=== PATIENT | female | born 1945 | race Caucasian/White ===

== ENCOUNTER 2021-08-08 13:30 | Inpatient (IN) ==
--- NOTE | 2021-08-08 13:44 | Emergency Department Note ---
HPI General Chief complaint: Extremity Injury, Lower Stated complaint: hip pain Time Seen by Provider: 08/08/21 13:38 Source: patient and EMS Mode of arrival: EMS Limitations: no limitations History of Present Illness HPI Narrative: 75-year-old female with past medical history of ankylosing spondylitis, anemia, and aortic valve stenosis presenting with right hip pain after a fall. Patient was getting out of the shower and tried to step over the tub when she tripped and fell onto her right side. Did not hit her head or lose consciousness. She was not able to get up on her own and EMS was called. She has pain in her anterior right hip area. Denies numbness or paresthesias. Denies any headache, back pain, or other extremity pain. Not on anticoagulation. She was given 100 mcg of fentanyl by EMS. Denies recent cough, fever, chest pain, or dysuria. Related Data Home Medications Medication Instructions Recorded Confirmed ascorbic acid (vitamin C) 500 mg 500 mg PO QDAY 08/30/17 08/08/21 capsule cholecalciferol (vitamin D3) 50 4,000 unit PO QDAY 12/11/17 08/08/21 mcg (2,000 unit) capsule vitamin B complex 1 cap PO QDAY 12/11/17 08/08/21 [id number]-minerals 18 1 tab PO QDAY tab 08/20/18 08/08/21 mg-0.4 mg tablet (Maximum Daily Multivitamin) ferrous sulfate 325 mg (65 mg 325 mg PO QAM tab 07/27/20 08/08/21 iron) tablet ibuprofen 200 mg tablet 200 mg PO PRN tab 07/27/20 08/08/21 Previous Rx's Medication Instructions Recorded albuterol sulfate 90 mcg/actuation 2 puff INHALATION QID PRN #8.5 g 08/06/20 aerosol inhaler Allergies Allergy/AdvReac Type Severity Reaction Status Date / Time Sulfa (Sulfonamide Allergy Mild Hives Verified 08/08/21 13:42 Antibiotics) Tetracyclines Allergy Mild Hives Verified 08/08/21 13:42 codeine Allergy Unknown Nausea, Verified 08/08/21 13:42 dizziness Amoxicillin [From Augmentin] AdvReac Intermediate Vomiting Verified 08/08/21 13:42 clavulanic acid AdvReac Intermediate Vomiting Verified 08/08/21 13:42 [From Augmentin] Review of Systems ROS ROS Narrative: Narrative: Constitutional: Denies fever or chills ENT ED: Denies throat pain Cardiovascular: Denies chest pain Respiratory: Denies shortness of breath or cough Gastrointestinal: Reports nausea; Denies abdominal pain, vomiting or diarrhea Genitourinary: Denies dysuria or hematuria Musculoskeletal: Reports as per HPI; Denies back pain Integumentary: Denies rash Neurological: Denies headache or dizziness Psychiatric: Denies anxiety Endocrine: Denies fatigue Hematological/Lymphatic: Denies easy bleeding PFSH Narrative Patient History Narrative: Narrative: Medical/Surgical/Family History All Active Problems (Updated 08/08/21 @ 14:46 by Fransico Fuentes MD) Closed intertrochanteric fracture of right hip (Acute) COVID-19 (Chronic) Fever (Acute) Cough (Acute) Polyclonal gammopathy (Acute) Watermelon stomach (Acute) Anemia (Chronic) Heartburn (Acute) Dyspnea (Acute) Pneumonia (Acute) SOB (shortness of breath) (Acute) URI (upper respiratory infection) (Chronic) Medication side effects (Acute) Maxillary sinusitis (Acute) Abdominal pain (Acute) Change in bowel habits (Acute) 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) Sinusitis, acute (Acute) Nausea & vomiting (Acute) Diarrhea due to drug (Acute) Side effect of medication (Acute) Subdural hemorrhage (Acute) Dizziness (Acute) Frontal headache (Acute) Nausea alone (Acute) Shortness of breath (Acute) Pleural effusion (Chronic) Chest pain (Chronic) Chronic cough (Chronic) Vitamin D deficiency (Chronic) Obesity (Chronic) Mitral valve stenosis (Chronic) Aortic valve stenosis (Chronic) Backache with radiation (Chronic) 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) Palpitations (Chronic) Dyspnea on exertion (Chronic) Urinary incontinence (Chronic) History of esophagogastroduodenoscopy (EGD) (Chronic 07/21/17) Iron deficiency anemia (Chronic) Candidiasis of vagina (Chronic) Community acquired pneumonia (Chronic) Elevated total protein (Acute) Acute dyspnea (Acute) Asthma exacerbation (Acute) Fever (Chronic) Atelectasis of left lung (Chronic) Ankylosing spondylitis (Chronic) JERAD positive (Chronic) Abnormal immunological finding in serum (Acute) Medical History Abnormal immunological finding in serum JERAD positive Anemia Ankylosing spondylitis Aortic valve stenosis Atelectasis of left lung Backache with radiation Candidiasis of vagina Chest pain Chronic cough Community acquired pneumonia 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 Cough Dyspnea on exertion Fever Iron deficiency anemia Mitral valve stenosis Obesity Palpitations Pleural effusion Pneumonia Polyclonal gammopathy Shortness of breath SOB (shortness of breath) URI (upper respiratory infection) Urinary incontinence Vitamin D deficiency Watermelon stomach Surgical History History of colonoscopy (06/25/15) History of esophagogastroduodenoscopy (EGD) (07/21/17) Family History Mother Heart disease, Onset Age: 80 Malignant tumor of colon Father , age 82 Carcinoma of prostate Heart disease Social History Smoking Status: Never smoker Alcohol Intake Frequency: does not drink Substance Use: does not use Exam Narrative Narrative: Narrative: General Limitations: no limitations General appearance: Present alert and in no apparent distress Head Head: Present atraumatic and normocephalic Eye Eye: Present normal appearance, PERRL and EOMI; Absent scleral icterus or conjunctival injection ENT ENT: Present mucous membranes moist Neck Neck: Present normal inspection, full ROM and trachea midline; Absent tenderness Chest Chest: Present symmetric chest wall rise Respiratory Respiratory: Present normal lung sounds bilaterally; Absent respiratory distress, wheezes, stridor, accessory muscle use or prolonged expiratory phase Cardiovascular Cardiovascular: Present regular rate, normal rhythm and systolic murmur; Absent diastolic murmur Adbominal Abdominal: Present soft; Absent distention, tenderness, guarding, rebound, rigidity or organomegaly Extremities Extremities: Present other (No upper extremity bony tenderness or left leg bony tenderness to palpation) Expanded Lower Extremity Hip/Pelvis: Present tenderness, deformity, external rotation and shortening Upper leg: Present normal inspection; Absent deformity Knee: Present normal inspection and full ROM; Absent tenderness Ankle: Present normal inspection and full ROM; Absent tenderness Neurovascular/Tendon: Present normal capillary refill; Absent pulse deficit or sensory deficit Back Back: Present normal inspection; Absent spinous process tenderness Neurological Neurological: Present alert, oriented X3 and CN II-XII intact; Absent motor sensory deficit Psychiatric Psychiatric: Present normal affect and normal mood Skin Skin: Present warm (WNL) and dry Course Consultations Consultation #1: Dr. Salvador, orthopedics Time: 13:45 Vital Signs Vital signs: Vital Signs Temperature 97.9 F 08/08/21 13:37 Pulse Rate 88 08/08/21 13:37 Respiratory Rate 16 08/08/21 13:37 Blood Pressure 176/69 08/08/21 13:37 Pulse Oximetry (%) 90 08/08/21 13:37 Temperature 97.9 F 08/08/21 13:37 Pulse Rate 86 08/08/21 14:46 Respiratory Rate 16 08/08/21 13:37 Blood Pressure 134/47 08/08/21 14:46 Pulse Oximetry (%) 100 08/08/21 14:46 MDM MDM Narrative Medical decision making narrative: 75-year-old female presenting with right hip pain after a fall. Her right leg is shortened and externally rotated. Neurovascularly intact. No other injuries. Likely right hip fracture, will obtain labs and x-rays. EKG shows no ischemic changes. She was given IV fentanyl by EMS and is now nauseous, will give IV Zofran. 1350: X-ray of the right hip shows an intertrochanteric fracture with moderate deformity. Chest x-ray shows stable fibrosis in both lungs. I spoke with Dr. Salvador of orthopedics who will admit the patient for likely surgical repair tomorrow. Patient was ordered 2mg of IV morphine in the ED. Admission orders placed. Patient and family updated with findings and plan. Lab Data Lab results reviewed: Yes I reviewed the patient's lab results. Result diagrams: 08/08/21 13:56 08/08/21 13:56 Labs: Lab Results 08/08/21 Range/Units 13:56 WBC 5.5 (4.5-11.0) K/mcL RBC 4.01 (3.59-5.38) M/mcL Hgb 9.1 L (11.2-15.7) g/dL Hct 30.6 L (34.1-44.9) % MCV 76.3 L (80.0-100.0) fL MCH 22.7 L (26.0-34.0) pg MCHC 29.7 L (31.0-36.0) g/dL RDW 19.9 H (11.5-14.5) % Plt Count 216 (140-440) K/mcL MPV 10.3 (7.4-10.4) fL Neut % (Auto) 80.1 H (38.0-78.0) % Lymph % (Auto) 8.9 L (15.5-49.0) % [place] % (Auto) 9.4 (1.0-12.0) % Eos % (Auto) 1.1 (0.0-7.0) % Baso % (Auto) 0.5 (0.0-2.0) % Lymph # (Auto) 0.49 L (1.50-4.80) K/mcL [place] # (Auto) 0.52 (0.10-0.90) K/mcL Eos # (Auto) 0.06 (0.00-0.70) K/mcL Baso # (Auto) 0.03 (0.00-0.30) K/mcL Absolute Neutrophils 4.43 (1.80-8.00) K/mcL Radiology Data Radiology results reviewed: Yes I reviewed the patient's radiology results. Radiology results narrative: Ordering Physician:Fransico Fuentes M.D. Date of Service:08/08/21 Procedure(s):XR hip RT comp 2VW HISTORY: Fell with right hip pain FINDINGS: There is an acute comminuted intertrochanteric fracture of the right hip. Lesser trochanter is displaced medially. There is impaction and angulation at the fracture site resulting in varus angulation. The femoral head remains normally centered within the acetabulum. There is a ring of spurs along the margin of the femoral head. The left hip is normal. There is moderate disc space narrowing at L4-5. The bones are osteoporotic. IMPRESSION: Intertrochanteric fracture of the right hip with moderate deformity Interpreted and Authenticated by: Hector Mckeon 08/08/21 Ordering Physician:Fransico Fuentes M.D. Date of Service:08/08/21 Procedure(s):XR chest 1V HISTORY: Fractured hip, preop FINDINGS: There is parenchymal scarring in both lung bases and in the left mid thorax. This is a chronic finding, unchanged from 07/15/21. There is no acute infiltrate. No mass or congestive heart failure are present. The heart size is normal. There is scarring in both costophrenic sulci. IMPRESSION: Stable fibrosis in both lungs and no acute abnormality Interpreted and Authenticated by: Hector Mckeon 08/08/21 EKG Data EKG #1: EKG attestation: Yes I reviewed and interpreted this EKG. and Yes There are no EKG findings of acute coronary syndrome EKG results narrative: Normal sinus rhythm at [address] elevation or depression. Interpretation: no acute changes Discharge Plan Patient/Caregiver Discharge Instructions Pt seen by DATA SCIENCE AND IOT MANAGER/PA only: No Clinical Impression: Closed intertrochanteric fracture of right hip Patient Disposition: Xfer As Inpt ([facility]) Follow up with: No,PCP [Primary Care Provider] - Prescriptions: No Action ibuprofen 200 mg tablet 200 mg PO PRN 0RF ferrous sulfate 325 mg (65 mg iron) tablet 325 mg PO QAM 0RF ascorbic acid (vitamin C) 500 mg capsule 500 mg PO QDAY 0RF vitamin B complex capsule 1 cap PO QDAY 0RF cholecalciferol (vitamin D3) 2,000 unit capsule 4,000 unit PO QDAY 0RF Maximum Daily Multivitamin 18-0.4 mg tablet 1 tab PO QDAY 0RF albuterol sulfate 90 mcg/actuation HFA aerosol inhaler 2 puff inhalation QID PRN (Reason: shortness of breath or wheezing) Qty: 8.5 0RF
[2021-08-08] MEDS ORDERED: ONDANSETRON 4 MG/2 ML VIAL IV ONE (13:52)
--- NOTE | 2021-08-08 14:28 | XRay Report ---
HISTORY: Fell with right hip pain FINDINGS: There is an acute comminuted intertrochanteric fracture of the right hip. Lesser trochanter is displaced medially. There is impaction and angulation at the fracture site resulting in varus angulation. The femoral head remains normally centered within the acetabulum. There is a ring of spurs along the margin of the femoral head. The left hip is normal. There is moderate disc space narrowing at L4-5. The bones are osteoporotic. IMPRESSION: Intertrochanteric fracture of the right hip with moderate deformity Interpreted and Authenticated by: Hector Mckeon 08/08/21
--- NOTE | 2021-08-08 14:29 | XRay Report ---
HISTORY: Fractured hip, preop FINDINGS: There is parenchymal scarring in both lung bases and in the left mid thorax. This is a chronic finding, unchanged from 07/15/21. There is no acute infiltrate. No mass or congestive heart failure are present. The heart size is normal. There is scarring in both costophrenic sulci. IMPRESSION: Stable fibrosis in both lungs and no acute abnormality Interpreted and Authenticated by: Hector Mckeon 08/08/21
[2021-08-08] MEDS ORDERED: morphine 2 MG/ML VIAL IV ONE (14:31)
[2021-08-08 14:37] LABS: Basophils # (Auto) 0.03 K/mcL (0.00-0.30); Basophils % (Auto) 0.5 % (0.0-2.0); Eosinophils # (Auto) 0.06 K/mcL (0.00-0.70); Eosinophils % (Auto) 1.1 % (0.0-7.0); Hematocrit 30.6 % (34.1-44.9); Hemoglobin 9.1 g/dL (11.2-15.7); Lymphocytes # (Auto) 0.49 K/mcL (1.50-4.80); Lymphocytes % (Auto) 8.9 % (15.5-49.0); Mean Cell Volume 76.3 fL (80.0-100.0); Mean Corpuscular HGB Conc 29.7 g/dL (31.0-36.0); Mean Platelet Volume 10.3 fL (7.4-10.4); Monocytes # (Auto) 0.52 K/mcL (0.10-0.90); Monocytes % (Auto) 9.4 % (1.0-12.0); Neutrophils % (Auto) 80.1 % (38.0-78.0); Platelet Count 216 K/mcL (140-440); RBC 4.01 M/mcL (3.59-5.38); Red Cell Distribution Width 19.9 % (11.5-14.5); WBC 5.5 K/mcL (4.5-11.0)
[2021-08-08 14:57] LABS: ALT/SGPT 16 U/L (<40); AST/SGOT 29 U/L (<32); Albumin 2.9 gm/dL (3.2-5.2); Albumin/Globulin Ratio 0.5 (1.0-2.3); Alkaline Phosphatase 132 U/L (39-117); Bilirubin,Total 0.8 mg/dL (0.1-1.0); Blood Urea Nitrogen 8 mg/dL (8-23); Calcium 8.1 mg/dL (8.6-10.4); Carbon Dioxide 24 mmol/L (22-30); Chloride 101 mmol/L (96-108); Globulin 5.4 gm/dL (2.2-3.7); Glomerular Filtration Rate 95; Glucose 132 mg/dL (70-105)
[2021-08-08] MEDS: morphine 2 MG/ML VIAL IV PRN ×2 (15:31→17:30)
[2021-08-08] MEDS ORDERED: HYDROcodone/APAP 10/325MG TABLET PO PRN (19:29)
[2021-08-08] MEDS: ONDANSETRON 4 MG/2 ML VIAL IV PRN (19:43)
[2021-08-08] MEDS ORDERED: ONDANSETRON 4 MG/2 ML VIAL ONE (19:43)
[2021-08-08] MEDS: HYDROmorphone 1 MG/ML SYRINGE IV PRN (21:02)
[2021-08-08] MEDS: 0.9 % SODIUM CHLORIDE 10 ML SYRINGE IV SCH (22:31)
[2021-08-09] MEDS: ONDANSETRON 4 MG/2 ML VIAL IV PRN ×3 (00:10→11:47)
[2021-08-09] MEDS: HYDROmorphone 1 MG/ML SYRINGE IV PRN ×4 (01:20→11:47)
[2021-08-09] MEDS: 0.9 % SODIUM CHLORIDE 10 ML SYRINGE IV SCH ×4 (06:03→22:04)
[2021-08-09] MEDS: LACTATED RINGERS 1,000 ML IV SCH ×5 (09:11→22:08)
[2021-08-09] MEDS ORDERED: ALBUTEROL SULFATE 200 PUFF INHALER INH PRN (09:37)
[2021-08-09] MEDS ORDERED: ceFAZolin 2 GM in DEXTROSE 5% IN WATER 50 ML IV SCH (11:00)
--- NOTE | 2021-08-09 11:12 | EKG ---
[facility] Test Date: 2021-08-08 Pat Name: Clau Elam Department: ED Room: Gender: Female Occupational Analyst: : 1945 Requested By: Fransico Fuentes Order Number: [id number] Reading MD: Michelle Aguilar D.O. Measurements Intervals [place] Rate: 81 P: 50 LA: 154 QRS: -23 QRSD: 93 T: 20 QT: 406 QTc: 472 Interpretive Statements Sinus rhythm Inferior infarct, old Delayed R wave progression Electronically Signed On 08-09-2021 11:12:28 PDT by Michelle Aguilar D.O. /store/M0/[id number]
[2021-08-09] MEDS ORDERED: PROPOFOL 200 MG/20 ML VIAL IV ONE (15:26)
[2021-08-09] MEDS ORDERED: ePHEDrine 50 MG/5 ML SYRINGE (ANEST) IV ONE (15:26)
[2021-08-09] MEDS ORDERED: MAGNESIUM SULFATE 2 GM/50 ML BAG IV ONE (15:26)
[2021-08-09] MEDS ORDERED: DEXAMETHASONE 10 MG/ML VIAL ONE (15:26)
[2021-08-09] MEDS ORDERED: TRANEXAMIC ACID 1,000 MG/10 ML VIAL ONE (15:26)
[2021-08-09] MEDS ORDERED: GLYCOPYRROLATE 0.2 MG/ML VIAL IV ONE (15:26)
[2021-08-09] MEDS ORDERED: ONDANSETRON 4 MG/2 ML VIAL ONE (15:26)
[2021-08-09] MEDS ORDERED: KETAMINE 50 MG/ML Syringe (ANEST) IV ONE (15:26)
[2021-08-09] MEDS ORDERED: PHENYLephrine 1 MG/10 ML SYRINGE (ANEST) ONE (15:26)
[2021-08-09] MEDS ORDERED: LIDOCAINE HCL/PF 100 MG/5 ML SYRINGE IV ONE (15:26)
--- NOTE | 2021-08-09 16:50 | Brief Operative Note ---
Brief Operative Note Date of procedure: 08/09/21 Pre-op diagnosis: Right intertrochanteric hip fx Post-op diagnosis: same Procedure: Right intertrochanteric hip im nailing Grafts/Implants: Yes Anesthesia: GETA Complications: none Surgeon: Alireza Salvador Hay Chopper: Kd To Estimated blood loss (cc): 89 Specimens Removed/Pathology: none sent Condition: stable Disposition: PACU
[2021-08-09] MEDS ORDERED: TRANEXAMIC ACID 1,000 MG/10 ML VIAL IV ONE ×2 (16:51)
[2021-08-09] MEDS ORDERED: HYDROmorphone 1 MG/ML SYRINGE IV PRN (16:51)
[2021-08-09] MEDS ORDERED: POLYETHYLENE GLYCOL 3350 17 GM PACKET PO PRN (16:51)
[2021-08-09] MEDS ORDERED: BENZOCAINE/MENTHOL 1 LOZENGE PO PRN ×2 (16:51→17:06)
[2021-08-09] MEDS ORDERED: BISACODYL 10 MG SUPP.RECT PR PRN (16:51)
[2021-08-09] MEDS ORDERED: ACETAMINOPHEN 325 MG TABLET PO PRN (16:51)
[2021-08-09] MEDS ORDERED: FLEETS ADULT ENEMA PR PRN (16:51)
[2021-08-09] MEDS ORDERED: TEMAZEPAM 15 MG CAPSULE PO PRN (16:51)
[2021-08-09] MEDS ORDERED: MAGNESIUM HYDROXIDE 30 ML ORAL.SUSP PO PRN (16:51)
--- NOTE | 2021-08-09 16:53 | Discharge Plan ---
DC Instructions-General Patient Instructions Dressing Care: May shower in 2 days and Aquacel Ag - leave on for 5 days Discharge Plan Patient/Caregiver Discharge Instructions Activity: ambulate only with your walker and as per physical therapy Prescriptions: New docusate sodium 100 mg capsule 100 mg PO BID Qty: 60 0RF aspirin [Ecotrin Low Strength] 81 mg tablet,delayed release (DR/EC) 81 mg PO BID Qty: 60 0RF oxycodone-acetaminophen 5-325 mg tablet 1 - 2 tab PO Q4H MDD 8 PRN (Reason: pain) Qty: 75 0RF No Action ibuprofen 200 mg tablet 200 mg PO PRN 0RF ferrous sulfate 325 mg (65 mg iron) tablet 325 mg PO QAM 0RF ascorbic acid (vitamin C) 500 mg capsule 500 mg PO QDAY 0RF vitamin B complex capsule 1 cap PO QDAY 0RF cholecalciferol (vitamin D3) 2,000 unit capsule 4,000 unit PO QDAY 0RF Maximum Daily Multivitamin 18-0.4 mg tablet 1 tab PO QDAY 0RF albuterol sulfate 90 mcg/actuation HFA aerosol inhaler 2 puff inhalation QID PRN (Reason: shortness of breath or wheezing) Qty: 8.5 0RF Other Ambulatory Orders: Physical Therapy DC - NORAH (Routine) Location: None Selected Ordered By: Kd To Toilet Riser Discharge Order (ONCE) Location: None Selected Ordered By: Kd Anderson (ONCE) Location: None Selected Ordered By: Kd To Follow Up Plan Follow up with: No,PCP [Primary Care Provider] - Kd To PA-C [Physician Drycleaner] - Patient Disposition: Xfer SNF Prognosis: Good Rehab Potential: Good I certify that the patient requires SNF services: Yes Overall status at discharge: patient is not back to baseline Discharge Orders: Discharge Order (Routine); Ordered 08/11/21 Ordered By: Kd To Discharge Comment: Cleared by Ortho and Discharge per Hospitalist
[2021-08-09] MEDS ORDERED: MEPERIDINE 25 MG/ML VIAL IV PRN (17:06)
[2021-08-09] MEDS ORDERED: IPRATROPIUM/ALBUTEROL 3 ML AMPUL.NEB NEB PRN (17:06)
[2021-08-09] MEDS ORDERED: ACETAMINOPHEN 1,000 MG/100 ML BAG IV ONE (17:06)
[2021-08-09] MEDS ORDERED: fentaNYL 100 MCG/2 ML VIAL IV PRN (17:06)
[2021-08-09] MEDS ORDERED: METHOCARBAMOL 1,000 MG/10 ML VIAL IV PRN (17:06)
--- NOTE | 2021-08-09 18:34 | XRay Report ---
CLINICAL INFORMATION: ORIF right intertrochanteric hip fracture FINDINGS: Multiple images from the OR show reduction of the intertrochanter fracture anatomic alignment transfixation by gamma nail IMPRESSION: ORIF right intertrochanteric fracture now anatomic alignment. Interpreted and Authenticated by: Jhonny Krishnan 08/09/21
--- NOTE | 2021-08-09 18:36 | XRay Report ---
CLINICAL INFORMATION: Right intertrochanteric fracture. COMPARISON: None. FINDINGS: The right inner trochanteric fracture has been reduced and is transfixed by gamma nail and screw. There is still approximately 8 mm of lateral displacement by the distal femoral fragment. Lesser trochanteric fragment appears to be three eight. Mild degeneration right hip patellofemoral tibiofemoral joint noted. IMPRESSION: ORIF right intertrochanteric fracture Interpreted and Authenticated by: Jhonny Krishnan 08/09/21
[2021-08-09] MEDS ORDERED: 0.9 % SODIUM CHLORIDE 10 ML SYRINGE IV SCH (22:00)
[2021-08-09] MEDS: DOCUSATE SODIUM 100 MG CAPSULE PO SCH (22:03)
[2021-08-09] MEDS: SENNOSIDES 1 TABLET PO SCH (22:03)
[2021-08-09] MEDS: ASPIRIN 81 MG TAB.CHEW CHEWED SCH (22:03)
[2021-08-09] MEDS: ceFAZolin 1 GM VIAL IV SCH (23:27)
[2021-08-10] MEDS: ONDANSETRON 4 MG/2 ML VIAL IV PRN ×2 (02:34→11:32)
[2021-08-10] MEDS: oxyCODONE/APAP 5/325MG TABLET PO PRN ×2 (02:35→16:34)
[2021-08-10] MEDS: LACTATED RINGERS 1,000 ML IV SCH ×4 (02:59→17:32)
[2021-08-10] MEDS: 0.9 % SODIUM CHLORIDE 10 ML SYRINGE IV SCH ×6 (04:04→20:55)
[2021-08-10] MEDS: ceFAZolin 1 GM VIAL IV SCH (06:39)
--- NOTE | 2021-08-10 07:14 | Consultation ---
DATE OF CONSULTATION: 08/09/2021 CHIEF COMPLAINT: Clau Elam, a 75-year-old, with a consultation from the emergency room. HISTORY OF PRESENT ILLNESS: The patient was seen where she was diagnosed with a 3-part intertrochanteric hip fracture with a same level fall on the right hip. The patient had a same level fall, has been a community ambulator. She has ankylosing spondylitis, anemia, aortic valve stenosis, presenting with right hip pain for a fall. The patient was getting out of the shower and tried to step onto the tub and had immediate fall on the right side, was unable to ambulate, was seen in the emergency room. She did not lose consciousness. She was not able to get to the EMS, so the EMS was called. On arrival in transit, she received 100 mcg of fentanyl. MEDICATIONS: Multivitamins. ALLERGIES: TO SEVERAL MEDICATIONS. SULFA, TETRACYCLINE, CODEINE, WHICH IS NAUSEA AND DIZZINESS. AMOXICILLIN, VOMITING. CLAVULANIC ACID, VOMITING, NOT TRUE ALLERGIES. REVIEW OF SYSTEMS: CONSTITUTIONAL: Denies fever or chills. Denies loss of consciousness. CARDIOVASCULAR: Denies chest pain. RESPIRATORY: No shortness of breath. GASTROINTESTINAL: Reports no nausea and has been eating well. GENITOURINARY: No dysuria or hematuria. MUSCULOSKELETAL: Denies current back pain. INTEGUMENTARY: Denies rash. NEUROLOGIC: Denies headaches and dizziness. PSYCHOLOGICAL: Denies anxiety. ENDOCRINE: Denies fatigue. PAST MEDICAL HISTORY: She has had multiple health problems that can be seen. PAST SURGICAL HISTORY: She has had a colonoscopy and EGD. FAMILY HISTORY: Mother at 80. Father at 82. SOCIAL HISTORY: The patient has never smoked, does not drink alcohol. PHYSICAL EXAMINATION: GENERAL: Very pleasant 75-year-old female who is alert and in pain when the muscle spasm. Otherwise, she is able to give a good history. The right leg is shortened and externally rotated. HEENT: Head: Atraumatic, normocephalic. Eyes: Extraocular movements intact. Tongue midline for ENT. NECK: Supple, nontender. LUNGS: Clear to auscultation bilaterally. CARDIOVASCULAR: Regular rate and rhythm. No murmurs, rubs or gallops. ABDOMEN: Soft, nontender. EXTREMITIES: The right leg is short and externally rotated, but she can move her toes without difficulty. There was quite a bit of swelling around the right proximal thigh. Ankle is not deformed. The knee appears to be aligned. NEUROLOGICAL: She can move the foot bilaterally and cranial nerves appear to be intact. PSYCHIATRIC: In good spirits and actually gives a good history. SKIN: Warm, moist. IMAGING: X-rays of the right hip demonstrated an intertrochanteric 3-part fracture with the lesser troch, greater trochanter and femoral head and neck separate fragments. The patient understands this. I explained her options and she agrees to proceed with an IM nailing of the right hip understanding the recovery to be about 6 weeks for ambulation and then 3 months for full recovery. She understands the risk of heart attack, strokes, and blood clots and even infection. These are all real possibilities with a substantial injury such as this. She may need blood as well, as this is the largest bone in the body. RBH:man Job ID: [id number] Doc ID: [id number] Alireza Salvador MD
--- NOTE | 2021-08-10 07:18 | Orthopedic Progress Note ---
SUBJECTIVE Subjective Patient information: Note initiated : 08/10/21 at 7:17 am Service Date, if different from initiated Date: [] Patient: Clau Elam 75 y/o F admitted on 08/08/21 for hip pain. Chief Complaint: [Pt is stable this morning on post operative day without any significant concerns or complaints. Patients vital signs have remained stable. Patients dressing is dry and is grossly intact from a neurovascular and motor standpoint. Patients 10 point ROS is otherwise negative. ] Constitutional Vitals: Vital Signs Temp Pulse Resp BP Pulse Ox 97.0 F 85 18 119/52 91 08/10/21 02:46 08/10/21 02:46 08/10/21 02:46 08/10/21 02:46 08/10/21 05:00 Period Temp Pulse Resp BP Sys/Lafleur Pulse Ox Last 24 Hr 97.0 F-98.9 F 78-103 10-19 100-131/38-88 73-100 Intake and Output 08/09/21 08/10/21 08/10/21 21:59 05:59 13:59 Intake Total 2648 240 1000 Output Total 350 325 Balance 2298 -85 1000 Weight 165 lb 4.8 oz Intake & Output: Intake & Output 08/09/21 08/10/21 08/10/21 21:59 05:59 13:59 Intake Total 2648 240 1000 Output Total 350 325 Balance 2298 -85 1000 Weight 165 lb 4.8 oz Intake: IV 1248 1000 Lactated Ringers 1,000 ml @ 125 1098 1000 mls/hr IV .Q8H NANCY Rx#: [id number] Ancef 2 gm In Dextrose 5% in 50 Water 50 ml @ 100 mls/hr IV PREOP NANCY Rx#:[id number] Oral 240 Clear Carbohydrate Drink 300 IV - Manual Only 1100 Output: Urine Catheter Amount 200 325 Uretheral (Romero) 200 Estimated Blood Loss 150 Other: Urine Appearance Cloudy Clear Uretheral (Romero) Clear Clear Urine Color Tea Colored Dark Yellow Uretheral (Romero) Dark Yellow Dark Yellow Urine Odor Normal Uretheral (Romero) Normal Extremities Exam Extremities exam: Present normal capillary refill, normal inspection, Foot pink and warm and neurovascular intact OBJ DATA Labs CBC & Chem 7: 08/10/21 05:26 08/08/21 13:56 Labs: Abnormal Lab Results 03/08/08/21 08/08/21 05:26 13:56 13:56 Hgb 9.1 L Hct 25.7 L 30.6 L MCV 76.3 L MCH 22.7 L MCHC 29.7 L RDW 19.9 H Neut % (Auto) 80.1 H Lymph % (Auto) 8.9 L Lymph # (Auto) 0.49 L Creatinine 0.5 L Glucose 132 H Calcium 8.1 L Alkaline Phosphatase 132 H Albumin 2.9 L Globulin 5.4 H Albumin/Globulin Ratio 0.5 L Meds: Medications Acetaminophen (Acetaminophen 325 Mg Tablet) 650 mg PO Q6HP PRN; Protocol PRN Reason: Per Pain Protocol/Fever > 101 Hydrocodone Bitart/Acetaminophen (Hydrocodone/Apap 10/325mg Tablet) 1 - 2 tab PO Q4HP PRN; Protocol PRN Reason: Per Pain Protocol Albuterol Sulfate (Albuterol Sulfate 200 Puff Inhaler) 2 puff INH QIDP PRN PRN Reason: shortness of breath or wheezing Ascorbic Acid (Ascorbic Acid 500 Mg Tablet) 500 mg PO DAILY [facility] Aspirin (Aspirin 81 Mg Tab.Chew) 81 mg CHEWED BID [facility] Last Admin: 08/09/21 22:03 Dose: 81 mg Documented by: Bisacodyl (Bisacodyl 10 Mg Supp.Rect) 10 mg ID Q2-3DAYS PRN PRN Reason: Constipation Docusate Sodium (Docusate Sodium 100 Mg Capsule) 100 mg PO BID [facility] Last Admin: 08/09/21 22:03 Dose: 100 mg Documented by: Ferrous Sulfate (Ferrous Sulfate 325 Mg Tablet) 325 mg PO QAM [facility] Hydromorphone HCl (Hydromorphone 1 Mg/Ml Syringe) 0.5 - 2 mg IV Q2HP PRN; Protocol PRN Reason: Per Pain Protocol Last Admin: 08/10/21 05:36 Dose: 1 mg Documented by: Lactated Ringer's (Lactated Ringers) 1,000 mls @ 125 mls/hr IV .Q8H [facility] Last Admin: 08/10/21 06:38 Dose: 125 mls/hr Documented by: Ibuprofen (Ibuprofen 200 Mg Tablet) 200 mg PO Q6HP PRN PRN Reason: Pain Iron Carb/Multivit/[place]/Folic Acid (Multivit,Ther Iron,Ca,Fa & Min 1 Tablet) 1 tab PO DAILY [facility]ANCY Magnesium Hydroxide (Magnesium Hydroxide 30 Ml Oral.Susp) 30 ml PO BIDP PRN PRN Reason: Constipation Morphine Sulfate (Morphine 2 Mg/Ml Vial) 2 mg IV Q1HP PRN; Protocol PRN Reason: Per Pain Protocol Last Admin: 08/08/21 17:30 Dose: 2 mg Documented by: Ondansetron HCl (Ondansetron 4 Mg/2 Ml Vial) 4 mg IV Q4HP PRN; Protocol PRN Reason: Nausea And Vomiting Last Admin: 08/10/21 02:34 Dose: 4 mg Documented by: Oxycodone/Acetaminophen (Oxycodone/Apap 5/325mg Tablet) 1 - 2 tab PO Q4HP PRN; Protocol PRN Reason: Per Pain Protocol Last Admin: 08/10/21 02:35 Dose: 2 tab Documented by: Polyethylene Glycol (Polyethylene Glycol 3350 17 Gm Packet) 17 gm PO DAILYP PRN PRN Reason: Constipation Senna (Sennosides 1 Tablet) 2 tab PO HS [facility] Last Admin: 08/09/21 22:03 Dose: 2 tab Documented by: Sodium Biphosphate/Sodium Phosphate (Fleets Adult Enema) 1 dose ID Q3-4DAYS PRN PRN Reason: Constipation Sodium Chloride (0.9 % Sodium Chloride 10 Ml Syringe) 10 ml IV Q8 [facility] Last Admin: 08/10/21 04:04 Dose: Not Given Documented by: Sodium Chloride (0.9 % Sodium Chloride 10 Ml Syringe) 10 ml IV Q8 [facility] Last Admin: 08/10/21 04:04 Dose: Not Given Documented by: Temazepam (Temazepam 15 Mg Capsule) 15 mg PO HSP PRN PRN Reason: Insomnia Throat Lozenges (Benzocaine/Menthol 1 Lozenge) 1 lozenge PO PRN PRN PRN Reason: Sore Throat Vitamin B Complex (Vitamin B Complex 1 Capsule) 1 cap PO QDAY [facility] Vitamin D (Vitamin D3 25 Mcg Tablet) 100 mcg PO DAILY [facility]ANC[facility] A/P Narrative A/P Narrative: The patient has been educated regarding dressing care, , restrictions, and follow up appointments. The patient has had all necessary DME prescribed. The patient has remained relatively stable during their hospital course. Time Spent With Patient Time: Total time spent is greater than 50% in coordination of care (as documented) at patient's floor/unit and/or counseling patient: Total time spent with greater than 50% in coordination of care (as documented) at patient's floor/unit and/or counseling patient:: less than 15 minutes Critical Care Time: No
--- NOTE | 2021-08-10 08:09 | Operative Note ---
DATE OF OPERATION: 08/09/2021 PREOPERATIVE DIAGNOSIS: Right intertrochanteric hip fracture, 3-part. POSTOPERATIVE DIAGNOSIS: Right intertrochanteric hip fracture, 3-part. PROCEDURE: IM nailing of intertrochanteric right hip fracture with a gamma nail, 100 mm compression screw with a 10 mm stem with one distal screw measuring 48 mm. SURGEON: Alireza Salvador M.D. RUBBER MOLDER: Kd To PA-C. This providers expertise and technical skill were required throughout the case. The DYAN assisted with preoperative coordination, intraoperative retraction, wound closure, and dressing and splint application, as well as postoperative documentation and care coordination. COMPLICATIONS: None. ESTIMATED BLOOD LOSS: About 100 mL. No blood products. Preoperative antibiotics and tranexamic acid confirmed given. DISPOSITION: To PACU. DESCRIPTION OF PROCEDURE: The patient was brought to the operating room, put to sleep with general LMA anesthesia. Once asleep, the patient had the right leg sterilely prepped on the [place] table. The timeout was performed, confirming the operative site. We made a 3-inch incision proximal to the greater trochanter. Because of the fatty mass, we had to extend down to the capsule. We performed a closed reduction using image and then we made a separate incision to hold the neck in position. This was reduced anatomically and then we placed a central guidewire proximally. Once done, we were able to then ream the canal up to size 12. A 10 mm stem was placed, one dynamic compression screw was placed into the central inferior and posterior third of the femoral head. A 100 mm screw was placed after predrilling. We then compressed the fracture. Once done, I was able to then lock distally with a 48 mm screw. Images confirmed the reduction in a static hole. We closed the other portals with Stratafix and leonel. Sterile bandage was applied. RBH:jez Job ID: [id number] Doc ID: [id number] Alireza Salvador MD
[2021-08-10] MEDS: DOCUSATE SODIUM 100 MG CAPSULE PO SCH ×2 (10:25→20:08)
[2021-08-10] MEDS: FERROUS SULFATE 325 MG TABLET PO SCH (10:25)
[2021-08-10] MEDS: ASPIRIN 81 MG TAB.CHEW CHEWED SCH ×2 (10:26→20:08)
[2021-08-10] MEDS: ASCORBIC ACID 500 MG TABLET PO SCH (10:26)
[2021-08-10] MEDS: VITAMIN D3 25 MCG TABLET PO SCH (10:26)
[2021-08-10] MEDS: VITAMIN B COMPLEX 1 CAPSULE PO SCH (10:26)
[2021-08-10] MEDS: MULTIVIT,THER IRON,CA,FA & MIN 1 TABLET PO SCH (10:26)
[2021-08-10] MEDS: SENNOSIDES 1 TABLET PO SCH (20:08)
[2021-08-11] MEDS: LACTATED RINGERS 1,000 ML IV SCH ×2 (03:24→14:04)
[2021-08-11] MEDS: 0.9 % SODIUM CHLORIDE 10 ML SYRINGE IV SCH ×6 (05:27→22:21)
[2021-08-11] MEDS: IBUPROFEN 200 MG TABLET PO PRN (05:29)
[2021-08-11] MEDS: oxyCODONE/APAP 5/325MG TABLET PO PRN ×3 (07:32→16:12)
[2021-08-11] MEDS: ASCORBIC ACID 500 MG TABLET PO SCH (08:32)
[2021-08-11] MEDS: FERROUS SULFATE 325 MG TABLET PO SCH (08:32)
[2021-08-11] MEDS: DOCUSATE SODIUM 100 MG CAPSULE PO SCH ×2 (08:32→20:42)
[2021-08-11] MEDS: ASPIRIN 81 MG TAB.CHEW CHEWED SCH ×2 (08:32→20:42)
[2021-08-11] MEDS: VITAMIN B COMPLEX 1 CAPSULE PO SCH (08:32)
[2021-08-11] MEDS: VITAMIN D3 25 MCG TABLET PO SCH (08:32)
[2021-08-11] MEDS: MULTIVIT,THER IRON,CA,FA & MIN 1 TABLET PO SCH (08:32)
--- NOTE | 2021-08-11 16:12 | Orthopedic Progress Note ---
SUBJECTIVE Subjective Patient information: Note initiated : 08/11/21 at 4:01 pm Service Date, if different from initiated Date: [] Patient: Clau Elam 75 y/o F admitted on 08/08/21 for hip pain. Chief Complaint: difficult to lift broken hip[] Principal diagnosis: Right intertrochanteric hip fx 3 part Constitutional Vitals: Vital Signs Temp Pulse Resp BP Pulse Ox 97.0 F 95 H 18 129/64 90 08/11/21 12:00 08/11/21 12:00 08/11/21 12:00 08/11/21 12:00 08/11/21 14:00 Period Temp Pulse Resp BP Sys/Lafleur Pulse Ox Last 24 Hr 96.9 F-98.5 F 94-101 16-20 109-130/44-64 87-98 Intake and Output 08/11/21 08/11/21 08/11/21 05:59 13:59 21:59 Intake Total 240 490 240 Output Total 500 450 350 Balance -260 40 -110 Intake & Output: Intake & Output 08/11/21 08/11/21 08/11/21 05:59 13:59 21:59 Intake Total 240 490 240 Output Total 500 450 350 Balance -260 40 -110 Intake: Oral 240 490 240 Output: Urine Catheter Amount 500 450 350 Other: Meal Breakfast Percent of Meal Consumed 100% Feeding Ability Independent Urine Appearance Clear Clear Clear Urine Color Bright Yellow Bright Yellow Bright Yellow Urine Odor Strong Strong Strong Neck Neck exam: Present full ROM Respiratory Respiratory exam: Present normal respiratory exam Expanded Lower Extremity Exam Hip exam: Present swelling Upper Leg exam: Present tenderness Neurological Exam Neurological exam: Present CN II-XII intact Expanded Psychiatric Exam Focused psych exam: Present perseverating OBJ DATA Labs CBC & Chem 7: 08/10/21 05:26 08/08/21 13:56 Labs: Abnormal Lab Results 08/10/21 05:26 Hct 25.7 L Meds: Medications Acetaminophen (Acetaminophen 325 Mg Tablet) 650 mg PO Q6HP PRN; Protocol PRN Reason: Per Pain Protocol/Fever > 101 Last Admin: 08/11/21 03:28 Dose: 650 mg Documented by: Hydrocodone Bitart/Acetaminophen (Hydrocodone/Apap 10/325mg Tablet) 1 - 2 tab PO Q4HP PRN; Protocol PRN Reason: Per Pain Protocol Albuterol Sulfate (Albuterol Sulfate 200 Puff Inhaler) 2 puff INH QIDP PRN PRN Reason: shortness of breath or wheezing Ascorbic Acid (Ascorbic Acid 500 Mg Tablet) 500 mg PO DAILY [facility] Last Admin: 08/11/21 08:32 Dose: 500 mg Documented by: Aspirin (Aspirin 81 Mg Tab.Chew) 81 mg CHEWED BID [facility] Last Admin: 08/11/21 08:32 Dose: 81 mg Documented by: Bisacodyl (Bisacodyl 10 Mg Supp.Rect) 10 mg [place] Q2-3DAYS PRN PRN Reason: Constipation Docusate Sodium (Docusate Sodium 100 Mg Capsule) 100 mg PO BID [facility] Last Admin: 08/11/21 08:32 Dose: 100 mg Documented by: Ferrous Sulfate (Ferrous Sulfate 325 Mg Tablet) 325 mg PO QAM [facility] Last Admin: 08/11/21 08:32 Dose: 325 mg Documented by: Hydromorphone HCl (Hydromorphone 1 Mg/Ml Syringe) 0.5 - 2 mg IV Q2HP PRN; Protocol PRN Reason: Per Pain Protocol Last Admin: 08/10/21 05:36 Dose: 1 mg Documented by: Ibuprofen (Ibuprofen 200 Mg Tablet) 200 mg PO Q6HP PRN PRN Reason: Pain Last Admin: 08/11/21 05:29 Dose: 200 mg Documented by: Iron Carb/Multivit/[place]/Folic Acid (Multivit,Ther Iron,Ca,Fa & Min 1 Tablet) 1 tab PO DAILY [facility] Last Admin: 08/11/21 08:32 Dose: 1 tab Documented by: Magnesium Hydroxide (Magnesium Hydroxide 30 Ml Oral.Susp) 30 ml PO BIDP PRN PRN Reason: Constipation Morphine Sulfate (Morphine 2 Mg/Ml Vial) 2 mg IV Q1HP PRN; Protocol PRN Reason: Per Pain Protocol Last Admin: 08/08/21 17:30 Dose: 2 mg Documented by: Ondansetron HCl (Ondansetron 4 Mg/2 Ml Vial) 4 mg IV Q4HP PRN; Protocol PRN Reason: Nausea And Vomiting Last Admin: 08/10/21 11:32 Dose: 4 mg Documented by: Oxycodone/Acetaminophen (Oxycodone/Apap 5/325mg Tablet) 1 - 2 tab PO Q4HP PRN; Protocol PRN Reason: Per Pain Protocol Last Admin: 08/11/21 13:45 Dose: 1 tab Documented by: Polyethylene Glycol (Polyethylene Glycol 3350 17 Gm Packet) 17 gm PO DAILYP PRN PRN Reason: Constipation Senna (Sennosides 1 Tablet) 2 tab PO HS [facility] Last Admin: 08/10/21 20:08 Dose: 2 tab Documented by: Sodium Biphosphate/Sodium Phosphate (Fleets Adult Enema) 1 dose [place] Q3-4DAYS PRN PRN Reason: Constipation Sodium Chloride (0.9 % Sodium Chloride 10 Ml Syringe) 10 ml IV Q8 [facility] Last Admin: 08/11/21 13:47 Dose: 10 ml Documented by: Sodium Chloride (0.9 % Sodium Chloride 10 Ml Syringe) 10 ml IV Q8 [facility] Last Admin: 08/11/21 13:47 Dose: 10 ml Documented by: Temazepam (Temazepam 15 Mg Capsule) 15 mg PO HSP PRN PRN Reason: Insomnia Throat Lozenges (Benzocaine/Menthol 1 Lozenge) 1 lozenge PO PRN PRN PRN Reason: Sore Throat Vitamin B Complex (Vitamin B Complex 1 Capsule) 1 cap PO QDAY [facility] Last Admin: 08/11/21 08:32 Dose: 1 cap Documented by: Vitamin D (Vitamin D3 25 Mcg Tablet) 100 mcg PO DAILY [facility] Last Admin: 08/11/21 08:32 Dose: 100 mcg Documented by: ABG Interpretation Interpretation: abnormal A/P Assessment and plan (1) Fracture: Status: Acute Comment: slow to improve Plan Wants dc home but only sliding the right leg and only a few steps Narrative A/P Narrative: DC home if becomes mobile DC to snf if no improvement Plan of Treatment: low hct retest tomorrow dc home tomorrow if mobile Time Spent With Patient Time: Total time spent is greater than 50% in coordination of care (as documented) at patient's floor/unit and/or counseling patient: Total time spent with greater than 50% in coordination of care (as documented) at patient's floor/unit and/or counseling patient:: 15 - 24 minutes Discharge Data Data Completed and Pending Procedures and tests throughout hospitalization: hct 25 Labs on day of discharge: hct tomorrow Impressions Impressions: dc home or snf
[2021-08-11 16:40] LABS: Appearance,Urine CLEAR (Clear); Bilirubin,Urine Negative (Negative); Color,Urine YELLOW; Culture Indicated,Urine No; Glucose,Urine (UA) Negative (Negative); Ketones,Urine Negative (Negative); Leukocyte Esterase,Urine Negative /uL (Negative); Mucus,Urine FEW /hpf; Nitrate,Urine Negative (Negative); Protein,Urine Negative (Negative); Urine Blood Negative (Negative); Urine Hyaline Cast 4 /lph (0-2); Urine RBC 1 /hpf (0-3); Urine Squamous Epithelial Cell < 1 /hpf (0-4); Urine WBC 1 /hpf (0-4); Urobilinogen,Urine Negative
[2021-08-11] MEDS: SENNOSIDES 1 TABLET PO SCH (20:42)
[2021-08-12] MEDS: oxyCODONE/APAP 5/325MG TABLET PO PRN ×3 (03:26→18:03)
[2021-08-12] MEDS: 0.9 % SODIUM CHLORIDE 10 ML SYRINGE IV SCH ×6 (05:12→20:09)
[2021-08-12] MEDS: ASPIRIN 81 MG TAB.CHEW CHEWED SCH ×2 (08:09→20:09)
[2021-08-12] MEDS: VITAMIN D3 25 MCG TABLET PO SCH (08:09)
[2021-08-12] MEDS: ASCORBIC ACID 500 MG TABLET PO SCH (08:10)
[2021-08-12] MEDS: FERROUS SULFATE 325 MG TABLET PO SCH (08:10)
[2021-08-12] MEDS: VITAMIN B COMPLEX 1 CAPSULE PO SCH (08:10)
[2021-08-12] MEDS: DOCUSATE SODIUM 100 MG CAPSULE PO SCH ×2 (08:10→20:09)
[2021-08-12] MEDS: MULTIVIT,THER IRON,CA,FA & MIN 1 TABLET PO SCH (08:10)
--- NOTE | 2021-08-12 18:00 | Orthopedic Progress Note ---
SUBJECTIVE Subjective Patient information: Note initiated : 08/12/21 at 5:56 pm Service Date, if different from initiated Date: [] Patient: Clau Elam 75 y/o F admitted on 08/08/21 for hip pain. Chief Complaint: [eating and walking better] Principal diagnosis: Right intertrochanteric hip fx 3 part Constitutional Vitals: Vital Signs Temp Pulse Resp BP Pulse Ox 98.4 F 104 H 17 128/57 95 08/12/21 16:00 08/12/21 16:00 08/12/21 16:00 08/12/21 16:00 08/12/21 17:47 Period Temp Pulse Resp BP Sys/Lafleur Pulse Ox Last 24 Hr 97.2 F-98.6 F 87-104 17-20 128-145/51-61 90-98 Intake and Output 08/12/21 08/12/21 08/12/21 05:59 13:59 21:59 Intake Total 200 240 800 Output Total 700 900 400 Balance -500 -660 400 Intake & Output: Intake & Output 08/12/21 08/12/21 08/12/21 05:59 13:59 21:59 Intake Total 200 240 800 Output Total 700 900 400 Balance -500 -660 400 Intake: Oral 200 240 400 GI Tube Flush 400 Output: Void Amount 700 900 400 Other: Meal Lunch Percent of Meal Consumed 100% Feeding Ability Independent Urine Appearance Clear Clear Clear Urine Color Bright Yellow Pale Pale Urine Odor Normal General appearance: no acute distress Extremities Exam Extremities exam: Present joint swelling, normal capillary refill, Foot pink and warm and neurovascular intact OBJ DATA Labs CBC & Chem 7: 08/10/21 05:26 08/08/21 13:56 Labs: Abnormal Lab Results 08/11/21 08/10/21 16:00 05:26 Hct 25.7 L Hyaline Casts 4 H Urine Mucus Few A Meds: Medications Acetaminophen (Acetaminophen 325 Mg Tablet) 650 mg PO Q6HP PRN; Protocol PRN Reason: Per Pain Protocol/Fever > 101 Last Admin: 08/11/21 03:28 Dose: 650 mg Documented by: Hydrocodone Bitart/Acetaminophen (Hydrocodone/Apap 10/325mg Tablet) 1 - 2 tab PO Q4HP PRN; Protocol PRN Reason: Per Pain Protocol Albuterol Sulfate (Albuterol Sulfate 200 Puff Inhaler) 2 puff INH QIDP PRN PRN Reason: shortness of breath or wheezing Ascorbic Acid (Ascorbic Acid 500 Mg Tablet) 500 mg PO DAILY [facility] Last Admin: 08/12/21 08:10 Dose: 500 mg Documented by: Aspirin (Aspirin 81 Mg Tab.Chew) 81 mg CHEWED BID [facility] Last Admin: 08/12/21 08:09 Dose: 81 mg Documented by: Bisacodyl (Bisacodyl 10 Mg Supp.Rect) 10 mg [place] Q2-3DAYS PRN PRN Reason: Constipation Docusate Sodium (Docusate Sodium 100 Mg Capsule) 100 mg PO BID [facility] Last Admin: 08/12/21 08:10 Dose: 100 mg Documented by: Ferrous Sulfate (Ferrous Sulfate 325 Mg Tablet) 325 mg PO QAM [facility] Last Admin: 08/12/21 08:10 Dose: 325 mg Documented by: Hydromorphone HCl (Hydromorphone 1 Mg/Ml Syringe) 0.5 - 2 mg IV Q2HP PRN; Protocol PRN Reason: Per Pain Protocol Last Admin: 08/10/21 05:36 Dose: 1 mg Documented by: Ibuprofen (Ibuprofen 200 Mg Tablet) 200 mg PO Q6HP PRN PRN Reason: Pain Last Admin: 08/11/21 05:29 Dose: 200 mg Documented by: Iron Carb/Multivit/[place]/Folic Acid (Multivit,Ther Iron,Ca,Fa & Min 1 Tablet) 1 tab PO DAILY [facility] Last Admin: 08/12/21 08:10 Dose: 1 tab Documented by: Magnesium Hydroxide (Magnesium Hydroxide 30 Ml Oral.Susp) 30 ml PO BIDP PRN PRN Reason: Constipation Morphine Sulfate (Morphine 2 Mg/Ml Vial) 2 mg IV Q1HP PRN; Protocol PRN Reason: Per Pain Protocol Last Admin: 08/08/21 17:30 Dose: 2 mg Documented by: Ondansetron HCl (Ondansetron 4 Mg/2 Ml Vial) 4 mg IV Q4HP PRN; Protocol PRN Reason: Nausea And Vomiting Last Admin: 08/10/21 11:32 Dose: 4 mg Documented by: Oxycodone/Acetaminophen (Oxycodone/Apap 5/325mg Tablet) 1 - 2 tab PO Q4HP PRN; Protocol PRN Reason: Per Pain Protocol Last Admin: 08/12/21 13:20 Dose: 1 tab Documented by: Polyethylene Glycol (Polyethylene Glycol 3350 17 Gm Packet) 17 gm PO DAILYP PRN PRN Reason: Constipation Senna (Sennosides 1 Tablet) 2 tab PO HS [facility] Last Admin: 08/11/21 20:42 Dose: 2 tab Documented by: Sodium Biphosphate/Sodium Phosphate (Fleets Adult Enema) 1 dose [place] Q3-4DAYS PRN PRN Reason: Constipation Sodium Chloride (0.9 % Sodium Chloride 10 Ml Syringe) 10 ml IV Q8 [facility] Last Admin: 08/12/21 14:33 Dose: 10 ml Documented by: Sodium Chloride (0.9 % Sodium Chloride 10 Ml Syringe) 10 ml IV Q8 [facility] Last Admin: 08/12/21 14:33 Dose: 10 ml Documented by: Temazepam (Temazepam 15 Mg Capsule) 15 mg PO HSP PRN PRN Reason: Insomnia Throat Lozenges (Benzocaine/Menthol 1 Lozenge) 1 lozenge PO PRN PRN PRN Reason: Sore Throat Vitamin B Complex (Vitamin B Complex 1 Capsule) 1 cap PO QDAY [facility] Last Admin: 08/12/21 08:10 Dose: 1 cap Documented by: Vitamin D (Vitamin D3 25 Mcg Tablet) 100 mcg PO DAILY [facility] Last Admin: 08/12/21 08:09 Dose: 100 mcg Documented by: A/P Assessment and plan (1) Fracture: Assessment and plan: healing well Plan: continue wiht pt wbat Status: Acute Comment: slow to improve Plan dc home tomorrow Narrative A/P Narrative: Doing better walking wiht pt and walker dc home with family help tomorrow Plan of Treatment: low hct retest tomorrow dc home tomorrow if mobile Time Spent With Patient Time: Total time spent is greater than 50% in coordination of care (as documented) at patient's floor/unit and/or counseling patient: Total time spent with greater than 50% in coordination of care (as documented) at patient's floor/unit and/or counseling patient:: 15 - 24 minutes
[2021-08-12] MEDS: SENNOSIDES 1 TABLET PO SCH (20:08)
[2021-08-12] MEDS: IBUPROFEN 200 MG TABLET PO PRN (20:09)
[2021-08-13] MEDS: 0.9 % SODIUM CHLORIDE 10 ML SYRINGE IV SCH ×2 (04:56→05:54)
[2021-08-13] MEDS: VITAMIN B COMPLEX 1 CAPSULE PO SCH (09:03)
[2021-08-13] MEDS: DOCUSATE SODIUM 100 MG CAPSULE PO SCH (09:03)
[2021-08-13] MEDS: FERROUS SULFATE 325 MG TABLET PO SCH (09:03)
[2021-08-13] MEDS: ASPIRIN 81 MG TAB.CHEW CHEWED SCH (09:03)
[2021-08-13] MEDS: ASCORBIC ACID 500 MG TABLET PO SCH (09:03)
[2021-08-13] MEDS: VITAMIN D3 25 MCG TABLET PO SCH (09:03)
[2021-08-13] MEDS: MULTIVIT,THER IRON,CA,FA & MIN 1 TABLET PO SCH (09:03)
== END 2021-08-13 13:05 | DRG 482 ==
LOC: ED 13:30 → MEDSUR 15:54
PROVIDERS: ADMIT Orthopaedic Surgery; ATTEND Orthopaedic Surgery